=== PATIENT | male | born 1950 | race Caucasian/White ===

== ENCOUNTER 2022-03-24 09:16 | Outpatient (CLI) | payer MEDICARE | END 2022-03-24 09:17 | disposition home or self-care (01) | LOC: CSHWCC 09:16 | PROVIDERS: ATTEND Nurse Practitioner Family | DX: E11.621 Type 2 diabetes mellitus with foot ulcer (principal); L97.512 Non-pressure chronic ulcer of other part of right foot with fat layer exposed | CPT/HCPCS: 99203; G0463 ==

== ENCOUNTER 2022-04-01 11:07 | Outpatient (CLI) | payer MEDICARE, OTHER | END 2022-04-01 11:08 | disposition home or self-care (01) | LOC: CSHWCC 11:07 | PROVIDERS: ATTEND Nurse Practitioner Family | DX: E11.621 Type 2 diabetes mellitus with foot ulcer (principal); L97.512 Non-pressure chronic ulcer of other part of right foot with fat layer exposed | CPT/HCPCS: 99213; G0463 ==

== ENCOUNTER 2022-04-22 11:08 | Outpatient (CLI) | payer MEDICARE, OTHER | END 2022-04-22 11:09 | disposition home or self-care (01) | LOC: CSHWCC 11:08 | PROVIDERS: ATTEND Nurse Practitioner Family | DX: E11.621 Type 2 diabetes mellitus with foot ulcer (principal); L97.512 Non-pressure chronic ulcer of other part of right foot with fat layer exposed ==